=== PATIENT | female | born 1975 | race Caucasian/White ===

== ENCOUNTER 2025-02-11 09:13 | Day surgery (SDC) | payer OTHER, SELFPAY ==
[2025-02-11] VITALS (10 sets, daily range): BP systolic 98–124; BP diastolic 47–57; PULSE 70–90; RESP 16; TEMP 36.2–37.3; O2SAT 98–100; BMI 21.5
--- NOTE | 2025-02-11 09:38 | SUR.PREOP ---
UA results from [facility]; itching on urination, denies pain. awaiting culture, PO Bactrim 3 days ordered to start today 02/11/25.
[2025-02-11] MEDS: Lactated Ringers 1,000 ML 15 ML IV (10:00)
--- NOTE | 2025-02-11 10:27 | PRE.ANES_ITS ---
ASA Classification* ASA Classification ASA Classification: 3 Assessment & Plan Anesthesia* Anesthesia Assessment Anesthesia Assessment: Discussed sedation and/or anesthesia options, risks, benefits, and alternatives with patient/parents/legal guardian/POA. Questions invited. The patient/parents/legal guardian/POA seems to understand and agrees to proceed with anesthesia plan. Reviewed the physical assessment, medical history, allergy history and patient home medications list prior to surgery/procedure/anesthetic and documented any changes. Performed airway and anesthesia risk assessments. Anesthesia Type Anesthesia Type: MAC History Source History Obtained from:: Patient and Chart Anesthesia Focused Assessment* Temperature: 99.2 F Pulse Rate: 90 Blood Pressure: 124/49 Respiratory Rate: 16 Pulse Ox: 98 Oxygen Delivery Method: Room Air Airway Assessment Mouth opens: >3 cm Mallampati Score: I Teeth Condition: Intact Neck Range of motion (ROM): Full ROM Labs Anesthesia Preop lab: CBC WBC 5.6 K/mm3 (4.4-11.0) 02/02/25 16:01 02/02/25 RBC 4.91 M/mm3 (4.2-5.4) 02/02/25 16:01 02/02/25 Hgb 13.6 g/dL (12.0-15.0) 02/02/25 16:01 02/02/25 Hct 42.4 % (37-47) 02/02/25 16:01 02/02/25 Plt Count 306 K/mm3 (150-450) 02/02/25 16:01 02/02/25 CHEMISTRY Potassium 3.6 mmol/L (3.3-5.1) 02/02/25 16:01 02/02/25 Sodium 142 mmol/L (133-145) 02/02/25 16:01 02/02/25 BUN 15 mg/dL (4-19) 02/02/25 16:01 02/02/25 Creatinine 0.72 mg/dL (0.70-1.20) 02/02/25 16:01 02/02/25 Glucose 113 mg/dL (70-99) H 02/02/25 16:01 02/02/25 COAG Pre-Assessment Diagnosis/Proposed Procedure Planned Operative Procedure(s): INSERTION VASCULAR PORT Anesthesia History 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 When Was Last Pacemaker Check QUESTION #4 FULL TEXT: You/Your Family Experience fever (hyperthermia) with Anesthesia Last Oral Intake Last Oral intake: Last Oral Intake NPO since 20:00 02/11/25 09:51 Meds taken in AM with sips of No 02/11/25 09:51 water? Meds patient instructed to take am of surgery PONV PONV - calculating machine mechanic: PONV - calculating machine mechanic Female Yes 02/04/25 11:11 HX of Motion Sickness No 02/04/25 11:11 HX of N/V After Surgery No 02/04/25 11:11 Non-Smoker Yes 02/04/25 11:11 Duration of Surgery greater No 02/04/25 11:11 than 60 minutes Number of Risk Factors 2 02/04/25 11:11 PONV Score Moderate Risk 02/04/25 11:11 Height & Weight Height & Weight: Anesthesia: Height & Weight Height 5 ft 4 in 02/11/25 09:51 Weight: 57 kg 02/11/25 09:51 Body Mass Index (BMI) 21.5 02/11/25 09:51 Respiratory Assessment Respiratory Assessment - calculating machine mechanic: Respiratory Tract Infection Hx - calculating machine mechanic Hx Respiratory Tract Infection No 02/04/25 11:11 STOP Sleep Apnea STOP Sleep Apnea - calculating machine mechanic: STOP Sleep Apnea - calculating machine mechanic Hx Hypertension No: HYPOTENSION 02/04/25 11:11 Hx Sleep Apnea No 02/04/25 11:11 CPAP BIPAP Do you snore loudly (louder No 02/04/25 11:11 than talking or can be heard Do you often feel tired/ No 02/04/25 11:11 fatigued/ sleepy during daytime? Has anyone observed you stop No 02/04/25 11:11 breathing during sleep? STOP Results Negative 02/04/25 11:11 QUESTION #5 FULL TEXT : Do you snore loudly (louder than talking or can be heard through closed doors)? 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 Specify any problems Hx of Preganancy in last 3 No 02/04/25 11:11 Months Nurse Filling Out Transfusion DSCHRIBER 02/04/25 11:11 & Questions: Date: 02/04/25 02/04/25 11:11 Time: 11:13 02/04/25 11:11 Patient unable to answer at this time (ie. confused, unrespo /Reproduction History /Reproductive History - calculating machine mechanic: /Reproductive Hx- calculating machine mechanic Hx Now Gestational Age (in weeks): EDC: Hx Hx Para Hx Section SAB No 02/04/25 11:11 Active Medications Active Medications: Current Medications Generic Name Dose Route Start Last Admin Trade Name Freq PRN Reason Stop Dose Admin Cefazolin Sodium 2 gm/ Sodium 110 mls @ 200 mls/hr 02/11/25 11:00 Chloride IV 02/11/25 11:32 INTRAOP ONE Lactated Ringer's 1,000 mls @ 15 mls/hr 02/11/25 09:30 IV .Q48H BRIAN PFSH Medical History Wears glasses Anxiety Alcohol use Migraine headache Thigh numbness Non-smoker Tachycardia Ovarian cancer Home Medications ?Medication ?Instructions ?Recorded ?Last Taken ?Type acetaminophen 325 mg capsule 325 mg PO ONCE PRN pain 0 01/26/25 Unknown History ibuprofen 600 mg tablet 600 mg PO Q8H PRN pain 01/26 Unknown History sulfamethoxazole 400 1 tab PO DAILY 02/11/25 Unkn own History mg-trimethoprim 80 mg tablet (Bactrim) Allergy/AdvReac Type Severity Reaction Status Date / Time No Known Allergies Allergy Verified 02/11/25 09:49 Family History Other Family history not known due to adoption Surgical History Hx of colonoscopy H/O: H/O total hysterectomy Social History household members: spouse current occupational status: employed 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
--- NOTE | 2025-02-11 11:13 | PCM.HP.BLA ---
History and Physical Date of Admission: 02/11/25 Date of Service: 02/10/25 MR#: [id number] Acct: [id number] Name: CHACHO GOMEZ Rep #: [id number] : 1975 Provider: Dr. Tamela Dempsey MD Age/Sex: 49/F Location: [facility] Status: Signed Intake Vital Signs 02/02/2514:57 02/10/2514:06 Height 5 ft 4 in 5 ft 4 in Weight: 128 lb 6 oz 128 lb BMI 22.0 21.9 BP 110/71 Blood Pressure Location Rt brachial Position Sitting Respiration 17 Pulse 81 Pulse Source Monitor Pulse Oximetry (%) 100 Oxygen Delivery Method room air Intake Visit Reasons: PORT PLACEMENT Chief Complaint: port placement Is patient in pain?: No Allergies No Known Allergies Allergy (Verified 02/10/25 14:06) Medications ?Medication ?Instructions ?Recorded ?Confirmed ?Type acetaminophen 325 mg capsule 325 mg PO ONCE PRN pain 01/26/25 02/10/25 History ibuprofen 600 mg tablet 600 mg PO Q8H PRN pain 01/26/25 02/10/25 History sennosides 8.6 mg tablet 8.6 mg PO QDAY PRN constipation 02/02/25 02/10/25 History PFSH Medical History (Updated 02/10/25 @ 14:06 by Ольга Ramirez) Wears glasses Anxiety Alcohol use Migraine headache Thigh numbness Non-smoker Tachycardia Ovarian cancer Surgical History Hx of colonoscopy H/O: H/O total hysterectomy Family History Other Family history not known due to adoption Social History household members: spouse current occupational status: employed 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 Status post DEBORAH, BSO with radical dissection of pelvic, periaortic lymph nodes omentectomy, peritoneal biopsies and placement of right intra peritoneal catheter with port at [facility]. Patient did complete her postoperative Eliquis regimen on Saturday. Patient is unsure when she is starting chemotherapy. Port is scheduled for tomorrow. ROS General General: Yes weight change; No appetite, fatigue, colon cancer, breast cancer or weakness HEENT HEENT: No difficulty swallowing, eye injury, eye surgery, swollen glands or hoarseness Endo Endocrine: No thyroid disease, diabetes mellitus, thyroid cancer, Hair loss, heat intolerance or cold intolerance Skin Skin: No rash or changing moles Musc Musculoskeletal: No back problems, arthritis, rheumatoid arthritis, gout or joint pain Cardio Cardiovascular: No murmur, pacemaker, heart disease, atrial fibrillation, high blood pressure, heart attack, heart stent, palpitations, shortness of breath with exertion or chest pain Psych Psychiatric: Yes anxiety; No depression or hearing voices Resp Respiratory: No shortness of breath, No sleep apnea, No cough, No COPD, No asthma, No emphysema and No wheezing Gastro Gastrointestinal: No abdominal pain, No nausea or vomiting, No diarrhea, No constipation, No blood in stool, No acid reflux, No hemorrhoids, No ulcers, No gallbladder problem and No black,tarry stools Amish Hematologic: No blood thinners, No blood disorders, No bleeding, No anemia and No blood clots Neuro Neurologic: No system reviewed and no additional complaints, except as documented, No as per HPI, No abnormal gait, No abnormal hearing, No abnormal movements, No abnormal speech, No behavioral changes, No burning sensations, No confusion, No convulsions, No disequilibrium, No dizziness, No localized weakness, No frequent falls, No headache(s), No lack of coordination, No loss of vision, No memory loss, Yes numbness, No other visual disturbances, No radicular pain, No restless legs, No sensory deficit, No syncope, Yes tingling, No tremor(s), No weakness and No other Exam Const General: cooperative, healthy appearing, comfortable and no acute distress [facility] Head: normocephalic and atraumatic Neck Neck: supple Chest Other: Palpation bilateral upper chest normal Resp Effort & Inspection: normal respiratory effort Cardio Rate: regular rate GI Inspection: non-distended and incision (Well-healed midline incision) Palpation: soft Skin General: no rashes or lesions noted Neuro General: CN's II-XI intact bilaterally Extrem General: normal to inspection Psych Mental Status: mental status grossly normal Attitude: cooperative Assessment and Plan Assessment and Plan (1) Encounter for insertion of venous access port: Status: Acute (2) Clear cell adenocarcinoma of ovary: Status: Acute Qualifiers: Laterality: right Qualified Code(s): C56.1 - Malignant neoplasm of right ovary Comment: FIGO stage IA-pT1a pN0 M0. Discussed adjuvant treatment with chemotherapy-Taxol and carboplatin IV every 3 weeks x 6 cycles, risk-benefit and side effects. Also discussed carboplatin and dose dense Taxol as alternative. Plan I have discussed above with the patient- Port-a-Cath placement. Right IJ possible left Patient has been counseled as to the risks/benefits of the procedure. I have explained the risks of the surgery, including but not limited to: infection, bleeding, injury to any blood vessels/nerves, injury to lungs (such as pneumothorax or hemothorax and need for chest tube), not having any access, nonfunctioning of port due to thrombosis, infection of port, etc. the patient understands and agrees to proceed. I have answered all the patient's questions to the patient?s satisfaction and the patient has no further questions. Tamela Dempsey M.D. Pager: [phone] [facility] [address] [place] [address], [facility], [address] [place] [address] Office: [phone] Coding Level of Care Code Off vis,new,level 3 Diagnoses Encounter for insertion of venous access port Z45.2 Clear cell adenocarcinoma of right ovary C56.1 Laterality: right 02/10/25 1442 <Electronically signed by Tamela Dempsey MD> Date Tamela Dempsey MD
[2025-02-11] MEDS: Lidocaine 1% /Epi 1:100 (20ml) 20 ML Vial (11:40)
--- NOTE | 2025-02-11 12:07 | OP.PCM_ITS ---
Operative Report (Standard) Operative Information Date of Procedure: 02/11/25 Pre-Operative Diagnosis: Z45.2, ovarian cancer Post-Operative Diagnosis: Same Surgery/Procedure Performed: Placement of right IJ Port-A-Cath Use of ultrasound Use of fluoroscopy marketing traffic manager: No Type of Anesthesia: Local MAC RN Documented Start/Stop Times: Operation Date: 02/11/25 11:00 Case Time Into Pre-Op 02/11/25 09:17 Out of Pre-Op 02/11/25 11:16 Anesthesia Start 02/11/25 11:18 Into Room 02/11/25 11:18 Procedure Start 02/11/25 11:40 Procedure End 02/11/25 12:04 Anesthesia End 02/11/25 12:08 Out of Room 02/11/25 12:08 Procedure Start Time: 11:40 Procedure Stop Time: 12:04 Select all DRAINS/GRAFTS/IMPLANTS that apply: Implanted device Implanted device details: Bard PowerPort isp M.R.I. 6Fr Lot [id number] Special Medications: Ancef 2 g IV x 1 Estimated Blood Loss: < 10 cc Specimen collected: No Description of surgery: After informed consent was given, the patient was brought to the operating room and placed in the supine position. Appropriate time out protocol was followed. Patient was then given IV conscious sedation for anesthesia. The patient's right upper chest and neck were then prepped with a surgical skin preparation and sterile surgical drapes were placed. After proper landmarks were ascertained, the skin at the upper right chest area was then infiltrated with 1:1 mixture of 1% lidocaine with epinephrine and 0.5% marcaine. A needle trocar was then inserted into the right internal jugular vein with ultrasound guidance-multiple vessels were viewed with u/s and the right IJ was chosen-- and there was good aspiration of venous blood. A wire was then threaded into the needle trocar and this was visualized under fluoroscopy to ensure that the wire was in the superior vena cava. Once this was done, then the needle trocar was removed. A small skin shawna was made with an 11 blade knife at the wire entrance site. The dilator with the introducer sheath attached was then placed over the wire into the right internal jugular vein via the Seldinger technique and this was visualized under fluoroscopy. The dilator and sheath were in proper position as visualized by fluoroscopy. A subcutaneous pocket was then created caudad to the catheter insertion site. A transverse skin incision was made after the skin and subcutaneous tissues were infiltrated with local anesthetic. Blunt dissection was then used to create a space large enough for placement of the subcutaneous port. The catheter was then tunneled into the subcutaneous pocket. The wire and dilator were then removed. The catheter was then threaded into the introducer sheath and was positioned with its tip at the junction of the superior vena cava and the right atrium as visualized under fluoroscopy. The excess catheter was transected. The catheter was then attached to the subcutaneous port using manufacturers guidelines. The catheter was flushed with a heparin saline mixture prior to placement. Hemostasis was carefully controlled with electrocautery. The port was sutured to the subcutaneous fascia using 2-0 Vicryl suture at two sites. The port was then placed in the subcutaneous pocket. The incision were reapproximated with interrupted subdermal 3-0 vicryl sutures. The skin was reapproximated with 3-0 nylon suture in a interrupted fashion. Steristrips were used for reinforcement of the skin closure at IJ insertion site and a sterile opsite dressings were applied. The patient tolerated the procedure well. Surgical Findings: See operative report Complications Complications: No
--- NOTE | 2025-02-11 12:08 | RAD_ITS ---
PROCEDURE: CHEST 1 VIEW (PORTABLE) 02/11/2025 REASON FOR EXAM: PORT TECHNIQUE: Frontal view of the chest. COMPARISON: None FINDINGS: There is a central access port on the right with its tip centrally located. Heart size and mediastinal configuration are within normal limits. There is no focal infiltrate or consolidation. There is no pneumothorax or effusion. There is no acute bony abnormality. There is no visible atherosclerosis. RAD/Chest 1 View (Portable) IMPRESSION: There is a port in position on the right. There is no visible complication. Reading Location: [facility]
--- NOTE | 2025-02-11 12:10 | DCINST_ITS ---
Discharge Instructions Procedure Port-A-Cath Diet Discharge Diet: Light diet - advance as tolerated Activity May shower in (days): 5 (Keep port site clean and dry x5 days. Neck incision okay to get wet after 1 day. Okay to lower shower and upper sponge bath. OR okay to taper off port site with a Ziploc bag to shower) Lifting Restrictions: No lifting > 15 pounds for 3 days with the arm on the side of the port Dressing / Incision Call your doctor if your incision/area has: Continuous Slow Oozing, Sudden Increased Bleeding, Increased Pain/ Swelling, Increased Redness, Foul Smelling Discharge and Swelling at the incision site Call your doctor if you observe: Fever of 101 or Higher Change Dressing in: 2 days (2-3 days- port site; ok to remove neck opsite in 1 day) Follow Up Care Please Follow Up With: Tamela Dempsey MD When: In 10 days for permanent suture removal?call office for appointment Test Results: Test results from this visit will be discussed in further detail at your follow- up appointment, if applicable. Discharge Plan Admission Attending Provider: Tamela Dempsey Primary Care Provider: Ronal Harper Instructions Print Language: Kosovan Discharge Orders/Prescriptions Prescriptions: Continued acetaminophen 325 mg capsule 325 mg PO ONCE PRN (Reason: pain) ibuprofen 600 mg tablet 600 mg PO Q8H PRN (Reason: pain) sulfamethoxazole-trimethoprim [Bactrim] 400-80 mg tablet 1 tab PO DAILY Patient Comments: dose to be started 02/11/25, DOS, unsure of correct dose. Length # days. Ordered by [facility] Doctors Referrals / Follow Up: Ronal Harper MD [Primary Care Provider] - Disposition Disposition (needs filled in before D/C Order can be placed): Home, Self Care
--- NOTE | 2025-02-11 12:14 | PCM.POST.ANE ---
Anesthesia: Postop Eval I Current Vital Signs Temperature: 97.5 F Pulse Rate: 86 Blood Pressure: 105/49 Respiratory Rate: 16 Pulse Ox: 100 Oxygen Delivery Method: Room Air Assessment Airway patent: Yes Spontaneous unlabored respirations: Yes Mental status: Awake and Calm nausea: No Vomiting: No Anesthesia Complication: No Fluid Hydration Crystalloid volume administer (ml): 600 Total IV fluid infused: 600 Progress Note Anesthesia document: Postop Eval 1 completed: Yes
--- NOTE | 2025-02-11 14:10 | POSTOPAN2_ITS ---
Anesthesia Postop Eval I Sum Postop Eval Completion status Anesthesia document: Postop Eval 1 completed: Yes Anesthesia Postop Eval I Summary Anesthesia Postop Eval I Summary: Anesthesia Postop Eval I: Assessment Summary Airway patent Yes 02/11/25 12:15 DIGITAL MARKETER.SKOBY Spontaneous unlabored Yes 02/11/25 12:15 DIGITAL MARKETER.SILVIO respirations Mental status Awake,Calm 02/11/25 12:15 DIGITAL MARKETER.SKOBY nausea No 02/11/25 12:15 DIGITAL MARKETER.SKOBY Vomiting No 02/11/25 12:15 DIGITAL MARKETER.MISAELOBMary Anesthesia Postop Eval I: Fluid Summary Crystalloid volume administer 600 02/11/25 12:15 DIGITAL MARKETER.SKOBY (ml) Colloids volume administered ( ml) Blood Product volume administered (ml) Total IV fluid infused 600 02/11/25 12:15 DIGITAL MARKETER.MISAELOBMary Anesthesia Postop Eval I: Summary Notes Anesthesia Complication No 02/11/25 12:15 DIGITAL MARKETER.SILVIO Anesthesia Complication Comment: Post-operative progress note Anesthesia: Postop Eval II Evaluation Mental status: Awake and Calm Pain Level: 1 nausea: No Vomiting: No Complications Anesthesia Complication: No
--- NOTE | 2025-02-11 14:10 | PCM.POSTANE2 ---
Anesthesia Postop Eval I Sum Postop Eval Completion status Anesthesia document: Postop Eval 1 completed: Yes Anesthesia Postop Eval I Summary Anesthesia Postop Eval I Summary: Anesthesia Postop Eval I: Assessment Summary Airway patent Yes 02/11/25 12:15 ECONOMICS ANALYST.SKOBY Spontaneous unlabored Yes 02/11/25 12:15 ECONOMICS ANALYST.SILVIO respirations Mental status Awake,Calm 02/11/25 12:15 ECONOMICS ANALYST.SKOBY nausea No 02/11/25 12:15 ECONOMICS ANALYST.SKOBY Vomiting No 02/11/25 12:15 ECONOMICS ANALYST.MISAELOBMary Anesthesia Postop Eval I: Fluid Summary Crystalloid volume administer 600 02/11/25 12:15 ECONOMICS ANALYST.SKOBY (ml) Colloids volume administered ( ml) Blood Product volume administered (ml) Total IV fluid infused 600 02/11/25 12:15 ECONOMICS ANALYST.MISAELOBMary Anesthesia Postop Eval I: Summary Notes Anesthesia Complication No 02/11/25 12:15 ECONOMICS ANALYST.SILVIO Anesthesia Complication Comment: Post-operative progress note Anesthesia: Postop Eval II Evaluation Mental status: Awake and Calm Pain Level: 1 nausea: No Vomiting: No Complications Anesthesia Complication: No
== END 2025-02-11 13:24 | disposition home or self-care (01) ==
LOC: SDC 09:15 → AC 09:16
PROVIDERS: PCP Family Medicine; Referring Provider Surgery; Visit Provider Surgery
PROC: (CPT 36561; principal; 2025-02-11 10:45)
DX: Z45.2 Encounter for adjustment and management of vascular access device (principal); C56.1 Malignant neoplasm of right ovary
CPT/HCPCS: 36561; 71045; 77001; J2405